=== PATIENT | male | born 1995 | race Caucasian/White ===

== ENCOUNTER 2017-11-09 23:51 | Emergency (ER) | payer OTHER ==
[2017-11-10] MEDS: ONDANSETRON 4MG/2ML VIAL (J2405) IV (01:30)
== END 2017-11-10 02:00 | disposition home or self-care (01) ==
LOC: M ED 23:51
DX: F10.129 Alcohol abuse with intoxication, unspecified (principal)
CPT/HCPCS: J2405

== ENCOUNTER 2019-02-03 19:21 | Emergency (ER) | payer OTHER ==
[~2019-02-03] VITALS: Ht 167.6 cm; Wt 72.7 kg
[2019-02-03] MEDS ORDERED: LIDOCAINE 1% MDV 20ML VIAL IM ONE (21:30)
[2019-02-03] MEDS ORDERED: KEFL500C17 PO (22:19)
[2019-02-03 22:26] VITALS: BP 130/92
[2019-02-03] MEDS ORDERED: CEPHALEXIN 500 MG CAP PO ONE (22:30)
[2019-02-03] MEDS ORDERED: NORCO 5/325MG TABLET (BULK FOR ED) PO ONE (22:45)
--- NOTE | 2019-02-04 10:36 | REP ---
Long finger series: Four views. History: Trauma. Findings: There is soft tissue irregularity at the distal phalanx of the long finger. No fracture or opaque foreign body is seen. Impression: No fracture or opaque foreign body seen. Soft tissue injury of the distal phalanx long finger. Electronically Signed by Scar Salazar MD 02/04/2019 08:00 A
== END 2019-02-03 22:38 | disposition home or self-care (01) ==
LOC: M ED 19:21
DX: S61.313A Laceration without foreign body of left middle finger with damage to nail, initial encounter (principal); S60.132A Contusion of left middle finger with damage to nail, initial encounter; W31.89XA Contact with other specified machinery, initial encounter; Y92.89 Other specified places as the place of occurrence of the external cause; Y93.9 Activity, unspecified; Y99.1 Military activity